=== PATIENT | male | born 1985 | race Caucasian/White ===

== ENCOUNTER 2022-12-29 22:03 | Outpatient (CLI) | payer BC | END 2022-12-29 23:59 | disposition critical access hospital (66) | LOC: EMS 22:03 | DX: R10.9 Unspecified abdominal pain (principal); R10.813 Right lower quadrant abdominal tenderness; R11.0 Nausea; R06.4 Hyperventilation; R20.2 Paresthesia of skin; M54.50 Low back pain, unspecified | CPT/HCPCS: A0425; A0427 ==

== ENCOUNTER 2022-12-29 22:24 | Emergency (ER) | payer BC, OTHER ==
[2022-12-29] MEDS ORDERED: SODIUM CHLORIDE 0.9% 1,000 ML IV STA (22:30)
--- NOTE | 2022-12-29 22:31 | ED Physician Documentation ---
History of Present Illness - Stated complaint Stated Complaint: ABD PAIN - History obtained from History obtained from: Patient, EMS - Additonal information Additional information: 37-year-old man presents with nausea and diarrhea since 1700 tonight as well as's diffuse abdominal pain past surgical history appendectomy. Patient called EMS and was given 8 of morphine and 4 of Zofran on route with improvement in nausea and abdominal pain. Patient states last meal was yesterday evening. PD PAST MEDICAL HISTORY - Present Medications Home Medications: Ambulatory Orders Medication Instructions Recorded Confirmed Ketorolac [Toradol] 10 mg PO Q6H PRN #20 tablet 12/30/22 Ondansetron Odt [Zofran Odt] 4 mg TL Q6H PRN #10 tablet 12/30/22 - Allergies Allergies/Adverse Reactions: Allergies Allergy/AdvReac Type Severity Reaction Status Date / Time No Known Drug Allergies Allergy Verified 12/29/22 22:35 PD ED PE NORMAL - Vitals Vital signs reviewed: Yes - General General: Alert and oriented X 3, No acute distress, Other (Large body Habitus) - HEENT HEENT: Atraumatic, PERRL, EOMI, Moist mucous membranes, Pharynx benign - Neck Neck: Supple, no meningeal sign - Cardiac Cardiac: RRR - Respiratory Respiratory: No respiratory distress, Clear bilaterally - Abdomen Abdomen: Non tender, Non distended, Other (Diffuse discomfort to palpation) - Derm Derm: Normal color, Warm and dry - Neuro Neuro: Alert and oriented X 3 Results - Vitals Vitals: Vital Signs - 24 hr 12/29/22 12/29/22 12/30/22 22:30 22:34 00:34 Temperature 36.2 C L Heart Rate 67 73 80 Respiratory 18 28 H 24 Rate Blood Pressure 163/102 H 160/98 H 158/83 H O2 Saturation 99 99 93 Oxygen O2 Source Room air - Labs Labs: Laboratory Tests 12/29/22 12/29/22 12/30/22 22:57 22:57 00:15 WBC 12.0 H RBC 5.42 Hgb 15.6 Hct 46.7 MCV 86.2 MCH 28.8 MCHC 33.4 RDW 13.3 Plt Count 240 MPV 10.7 Neut # (Auto) 9.1 H Lymph # (Auto) 1.7 [place] # (Auto) 0.8 Eos # (Auto) 0.3 Baso # (Auto) 0.1 Absolute Nucleated RBC 0.00 Nucleated RBC % 0.0 Sodium 138 Potassium 3.3 L Chloride 106 Carbon Dioxide 19 L Anion Gap 13.0 BUN 17 Creatinine 1.1 Estimated GFR (MDRD) 75 L Glucose 195 H Calcium 8.8 Total Bilirubin 0.8 AST 27 ALT 48 Alkaline Phosphatase 68 Total Protein 7.3 Albumin 4.2 Globulin 3.1 Albumin/Globulin Ratio 1.4 Lipase 24 Urine Color YELLOW Urine Clarity HAZY Urine pH 6.0 Ur Specific [place] >=1.030 H Urine Protein 30 H Urine Glucose (UA) NEGATIVE Urine Ketones >=80 H Urine Occult Blood LARGE H Urine Nitrite NEGATIVE Urine Bilirubin NEGATIVE Urine Urobilinogen 0.2 (NORMAL) Ur Leukocyte Esterase NEGATIVE Urine RBC TNTC H Urine WBC 0-3 Ur Squamous Epith Cells RARE Squamous Urine Bacteria Rare Urine Mucus Moderate Strands Ur Microscopic Review INDICATED Urine Culture Comments NOT INDICATED PD Medical Decision Making - ED course ED course: 29-year-old man presents with abdominal pain, nausea and diarrhea. CBC, abdominal panel, urinalysis, IV fluids ordered. He received morphine and Zofran IV with EMS. We will reevaluate. Labs remarkable for leukocytosis with white blood cell count of 12. Otherwise largely unremarkable. Patient states his pain is much better and is able to give further history, though he is very slow in speaking. Mother states this is normal for him, and that he is normally a "heavy breather". Patient states he takes peptobismol regularly and has had issues on and off with diarrhea since he had his appendix removed. He did call out of work today due to abdominal discomfort. still awaiting urine specimen. Patient with blood on u/a. mild to moderate R hydronephrosis and a few kidney stones on CT a/p. patient's pain has resolved. advised outpatient urology follow up. pain and nausea rx printed. return precautions given. Departure - Departure Disposition: 01 Home, Self Care Clinical Impression: Abdominal pain, Nausea, Diarrhea, Kidney stones Condition: Stable Instructions: ED Diarrhea Viral Prescriptions: Ketorolac [Toradol] 10 mg PO Q6H PRN #20 tablet PRN Reason: Pain Ondansetron Odt [Zofran Odt] 4 mg TL Q6H PRN #10 tablet PRN Reason: Nausea / Vomiting Comments: You were seen in the emergency department for kidney stones. Please follow-up with urology (referral provided). Return to the emergency department for new or worsening symptoms or other concerns. prescription was printed out for Zofran for nausea and Toradol for pain.
[2022-12-29] MEDS ORDERED: HYDROmorphone 1 MG/ML CARPUJECT IVP STA (22:48)
[2022-12-29] MEDS ORDERED: METOCLOPRAMIDE 10 MG/2 ML VIAL IVP STA (22:48)
[2022-12-29 23:02] LABS: BASOPHILS # (AUTO) 0.1 10^3/uL (0.0-0.1); BASOPHILS % (AUTO) 0.7 %; EOSINOPHILS # (AUTO) 0.3 10^3/uL (0.0-0.7); EOSINOPHILS % (AUTO) 2.1 %; HCT - HEMATOCRIT 46.7 % (42.0-52.0); HGB - HEMOGLOBIN 15.6 g/dL (14.0-18.0); LYMPHOCYTES # (AUTO) 1.7 10^3/uL (1.5-3.5); LYMPHOCYTES % (AUTO) 14.2 %; MEAN CORPUSCULAR HEMOGLOBIN 28.8 pg (27.0-31.0); MEAN CORPUSCULAR HGB CONC 33.4 g/dL (32.0-36.0); MEAN CORPUSCULAR VOLUME 86.2 fL (80.0-94.0); MEAN PLATELET VOLUME 10.7 fL (7.4-11.4); MONOCYTES # (AUTO) 0.8 10^3/uL (0.0-1.0); NEUTROPHILS # (AUTO) 9.1 10^3/uL (1.5-6.6); NEUTROPHILS % (AUTO) 75.3 %; PLT - PLATELET COUNT 240 10^3/uL (130-450); RED BLOOD COUNT 5.42 10^6/uL (4.70-6.10); RED CELL DISTRIBUTION WIDTH 13.3 % (12.0-15.0)
[2022-12-29 23:15] LABS: ALBUMIN 4.2 g/dL (3.2-5.5); ALBUMIN/GLOBULIN RATIO 1.4 (1.0-2.2); BILIRUBIN,TOTAL 0.8 mg/dL (0.2-1.0); CALCIUM 8.8 mg/dL (8.5-10.3); CREATININE 1.1 mg/dL (0.6-1.2); POTASSIUM 3.3 mmol/L (3.5-5.0); TOTAL PROTEIN 7.3 g/dL (6.7-8.2)
[2022-12-30] MEDS ORDERED: SODIUM CHLORIDE 0.9% 1,000 ML IV STA
[2022-12-30 00:27] LABS: BILIRUBIN,URINE NEGATIVE (NEGATIVE); GLUCOSE, URINE (UA) NEGATIVE (NEGATIVE); KETONES,URINE (UA) >=80 mg/dL (NEGATIVE); LEUKOCYTE ESTERASE, URINE NEGATIVE (NEGATIVE); NITRITE,URINE NEGATIVE (NEGATIVE); OCCULT BLOOD,URINE LARGE (NEGATIVE); PROTEIN,URINE 30 mg/dL (NEGATIVE); UROBILINOGEN,URINE 0.2 (NORMAL) E.U./dL (NORMAL)
[2022-12-30 00:34] LABS: CLARITY,URINE HAZY (CLEAR)
[2022-12-30 00:35] LABS: BACTERIA,URINE Rare /HPF (None Seen); MUCUS,URINE Moderate Strands; RBC,URINE TNTC /HPF (0-5); SQUAMOUS EPITHELIAL CELL,UR RARE Squamous (<= Few); WBC,URINE 0-3 /HPF (0-3)
--- NOTE | 2022-12-30 01:34 | CT Report ---
PROCEDURE: ABDOMEN/PELVIS WO INDICATIONS: hematuria, RLQ pain radiating to flank TECHNIQUE: A CT scan of the abdomen and pelvis was performed without the use of intravenous contrast. Images we re recorded and evaluated at appropriate window settings. Reformats: coronal and sagittal. For radiat ion dose reduction, the following was used: automated exposure control, adjustment of mA and/or kV ac cording to patient size. COMPARISON: None. FINDINGS: Image quality: Evaluation limited by body habitus with the left abdominal wall not fully included on current study. Lung bases: Unremarkable. Heart: Heart is normal in size. ABDOMEN: Liver:Noncontrast evaluation demonstrates no discrete hepatic mass. Gallbladder: Within normal limits without calcified gallstones. Biliary ducts: No biliary ductal dilatation. Pancreas: Unremarkable. Spleen: Normal in size. Adrenal Glands: No adrenal nodules. Kidneys and Ureters:There is moderate right hydronephrosis. Stomach and Bowel: Stomach, small bowel loops, and colon are normal in caliber and wall thickness. T here are surgical sutures along the cecum consistent with prior appendectomy. There is suggestion of a few punctate stones at the right ureteropelvic junction. There is colonic diverticulosis without ac rios diverticulitis. Peritoneum: No abnormal intraperitoneal fluid. No free air. Ventral Wall: No hernia. Abdominal Nodes: No retroperitoneal or mesenteric adenopathy by size criteria. Vessels: Aorta and inferior vena cava are normal in size. PELVIS: Pelvic Organs: Unremarkable. Bladder: Unremarkable. Pelvic Nodes: No enlarged lymph nodes. Miscellaneous: No inguinal hernias. Bones: Visualized osseous structures demonstrate no suspicious lesions. IMPRESSION: 1. Mild right hydronephrosis with a transition at the right UPJ where there is a small suspected tumo r or stone. Reviewed by: Trung Yadav MD on 12/30/2022 1:33 AM PDT Approved by: Trung Yadav MD on 12/30/2022 1:33 AM PDT Station ID: [id number]
[2022-12-30 02:16] VITALS: BP 148/70
== END 2022-12-30 02:15 | disposition home or self-care (01) ==
LOC: EDUNIT# → ED 22:24
DX: N13.2 Hydronephrosis with renal and ureteral calculous obstruction (principal)
CPT/HCPCS: 36415; 74176; 80053; 81001; 83690; 85025; 96361; 96374; 99284; J1170; J2765; 81003; 87086